=== PATIENT | male | born 1970 | race Caucasian/White ===

== ENCOUNTER 2019-02-04 01:30 | Emergency (ER) | payer BC ==
--- NOTE | 2019-02-04 02:10 | EDM.PDOC ---
ED HPI GENERAL MEDICAL PROBLEM - General Chief Complaint: Skin Complaint Stated Complaint: BLEEDING POST OP ON NOSE Time Seen by Provider: 02/04/19 01:50 Source of Information: Reports: Patient History Limitations: Reports: No Limitations - History of Present Illness INITIAL COMMENTS - FREE TEXT/NARRATIVE: 48-year-old male who had a fairly extensive surgical incision on the nose earlier today to remove a basal cell carcinoma developed some hemorrhaging from the surgical site tonight which scared him. In route to the hospital the bleeding stopped. Onset: Sudden Associated Symptoms: Reports: No Other Symptoms Treatments NETWORK [employer]PERATIONS LEAD: Reports: Other (see below) Other Treatments [employer]WORK [employer]PERATIONS LEAD: Unknown Nose Pain Score (Numeric/FACES): 6 - Related Data Allergies Allergy/AdvReac Type Severity Reaction Status Date / Time No Known Allergies Allergy Verified 02/04/19 02:00 Home Meds: Home Meds Ciprofloxacin [Ciprofloxacin HCl] 500 mg PO BID 02/04/19 [History] Past Medical History Oncologic (Cancer) History: Reports: Basal Cell Carcinoma - Infectious Disease History Infectious Disease History: Reports: Chicken Pox - Past Surgical History Dermatological Surgical History: Reports: Other (See Below) Social & Family History - Tobacco Use Smoking Status *Q: Never Smoker Second Hand Smoke Exposure: No - Caffeine Use Caffeine Use: Reports: Coffee - Recreational Drug Use Recreational Drug Use: No ED ROS GENERAL - Review of Systems Review Of Systems: See Below Constitutional: Denies: Fever, Chills Respiratory: Denies: Shortness of Breath Cardiovascular: Denies: Chest Pain GI/Abdominal: Denies: Nausea, Vomiting Neurological: Reports: Dizziness (Briefly lightheaded now feels better) ED EXAM, SKIN/RASH Exam: See Below Exam Limited By: No Limitations General Appearance: Alert, No Apparent Distress Eye Exam: Bilateral Eye: EOMI Head: Other (Patient has an irregular sutured postsurgical site over the nose with fairly tight incision lines but no active bleeding. There does not appear to be any missing sutures are opening of the incision, no bleeding from the nares) Respiratory/Chest: No Respiratory Distress Course - Vital Signs Last Recorded V/S: Last Vital Signs Temp 96.4 F 02/04/19 01:52 Pulse 71 02/04/19 01:52 Resp 14 02/04/19 01:52 BP 131/92 H 02/04/19 01:52 Pulse Ox 97 02/04/19 01:52 - Re-Assessments/Exams Free Text/Narrative Re-Assessment/Exam: 02/04/19 02:08 No treatment necessary as bleeding has stopped spontaneously. Avoid any further irritation of the wound, sleep upright, and return if bleeding recurs and can't be stopped. Departure - Departure Time of Disposition: 02:17 Disposition: Home, Self-Care 01 Condition: Good Clinical Impression: Postoperative bleeding from incision - Discharge Information Instructions: Laceration Care, Adult Referrals: PCP,None [Primary Care Provider] - Forms: ED Department Discharge Care Plan Goals: Continue conservative treatment, sleep upright and avoid irritation of the incision and stitches. Return anytime if bleeding recurs and will not stop with mild pressure and elevation.
== END 2019-02-04 02:10 | disposition home or self-care (01) ==
LOC: JP.ED 01:30
DX: J95.830 Postprocedural hemorrhage of a respiratory system organ or structure following a respiratory system procedure (principal)
CPT/HCPCS: 99283